=== PATIENT | female | born 1985 | race Caucasian/White ===

== ENCOUNTER 2018-01-20 23:38 | Emergency (ER) | payer OTHER ==
--- NOTE | 2018-01-20 23:40 | PDOC ---
History of Present Illness - General Chief Complaint: Pain, Acute Stated Complaint: FELL WHILE WORKING, PAIN TO PALMS OF BOTH HANDS AN Time Seen by Provider: 01/20/18 23:40 History Source: Patient Exam Limitations: No Limitations - History of Present Illness Initial Comments: 32 yo F presents with B/L hand and elbow pain after a mechanical fall while at work. She states she braced herself and landed on her hands. Now c/o moderate pain to hands and elbows. No weakness, numbness. No other injuries, no LOC. Past History - Past Medical History Allergies/Adverse Reactions: Allergies Allergy/AdvReac Type Severity Reaction Status Date / Time Penicillins Allergy Verified 01/20/18 23:40 Home Medications: Ambulatory Orders NK [No Known Home Medication] 01/20/18 Review of Systems - Review of Systems Able to Perform ROS?: Yes Comments:: GENERAL/CONSTITUTIONAL: No fever or chills. No weakness. HEAD, EYES, EARS, NOSE AND THROAT: No change in vision. No ear pain or discharge. No sore throat. CARDIOVASCULAR: No chest pain or shortness of breath. RESPIRATORY: No cough, wheezing, or hemoptysis. GASTROINTESTINAL: No nausea, vomiting, diarrhea or constipation. GENITOURINARY: No dysuria, frequency, or change in urination. MUSCULOSKELETAL: +Hand and elbow pain. No neck or back pain. SKIN: No rash NEUROLOGIC: No headache, vertigo, loss of consciousness, or change in strength/ sensation. ENDOCRINE: No increased thirst. No abnormal weight change. HEMATOLOGIC/LYMPHATIC: No anemia, easy bleeding, or history of blood clots. ALLERGIC/IMMUNOLOGIC: No hives or skin allergy. *Physical Exam - Physical Exam Comments: GENERAL: Awake, alert, and fully oriented, in no acute distress HEAD: No signs of trauma EYES: PERRLA, EOMI, sclera anicteric, conjunctiva clear ENT: Auricles normal inspection, hearing grossly normal, nares patent, oropharynx clear without exudates. Moist mucosa EXTREMITIES: +Tenderness to the palms of the hands B/L. FROM at wrist joints. No pain on axial load B/L. No tenderness in the anatomic snuffbox B/L. R elbow with FROM, nontender to palpation. L elbow with FROM, +mild tenderness to the olecranon process. Remainder of extremities with normal range of motion, no edema. No clubbing or cyanosis. No cords, erythema, or tenderness NEUROLOGICAL: Cranial nerves II through XII grossly intact. Normal speech, normal gait. Motor and sensation intact. SKIN: Warm, Dry, normal turgor, no rashes or lesions noted. *DC/Admit/Observation/Transfer Diagnosis at time of Disposition: Contusion Qualifiers: Encounter type: initial encounter Contusion area: hand Laterality: unspecified laterality Qualified Code(s): S60.229A - Contusion of unspecified hand, initial encounter - Discharge Dispostion Disposition: HOME Condition at time of disposition: Stable Decision to Admit order: No - Referrals - Patient Instructions Printed Discharge Instructions: DI for Contusion - Post Discharge Activity
[2018-01-20 23:48] VITALS: BP 150/85; PULSE 63; TEMP 97.3; BMI 39.8
== END 2018-01-21 00:29 | disposition home or self-care (01) ==
LOC: FER 23:38
DX: S60.229A Contusion of unspecified hand, initial encounter (principal); W18.39XA Other fall on same level, initial encounter; Y93.89 Activity, other specified; Y92.9 Unspecified place or not applicable; Y99.0 Civilian activity done for income or pay
CPT/HCPCS: 73070-TC-LT-FY; 73130-TC-LR-FY; 73130-TC-RT-FY; 84703; 99281-25